=== PATIENT | female | born 1960 | race Caucasian/White ===

== ENCOUNTER 2018-03-17 18:58 | Emergency (ER) | payer OTHER ==
[~2018-03-17] VITALS: Ht 165.1 cm; Wt 59.9 kg
[2018-03-17 19:11] VITALS: BP_SYST 133
--- NOTE | 2018-03-17 19:19 | NUR ---
Patient to ER bed 04 to gown for evaluation. Side rails up.
--- NOTE | 2018-03-17 19:20 | NUR ---
Pt is alert and awake. Pt C/O right sided breast pain that radiates to back since Friday, pain stated 08/19. Denies any N/V/D. Skin warm and intact. No signs of SOB or acute distress noted. Will continue to monitor.
--- NOTE | 2018-03-17 19:44 | NUR ---
ER at bedside examining patient.
[2018-03-17] MEDS ORDERED: NACL 0.9% 1,000 ML IV ONE (19:52)
[2018-03-17] MEDS ORDERED: KETOROLAC TROMETHAMINE 30 MG VIAL IVP ONE (20:00)
[2018-03-17 20:27] LABS: BASOPHILS % (AUTO) 0.6 % (0.0-2.0); EOSINOPHILS # (AUTO) 0.3 K/uL (0.0-0.4); EOSINOPHILS % (AUTO) 4.1 % (0.0-4.0); HEMATOCRIT 40.4 % (36-48); HEMOGLOBIN 13.4 g/dL (12.0-16.0); LYMPHOCYTES # (AUTO) 2.6 K/uL (1.0-5.5); LYMPHOCYTES % (AUTO) 39.3 % (20.5-51.5); MEAN CORPUSCULAR HEMOGLOBIN 30 pg (27-31); MEAN CORPUSCULAR HGB CONC 33 % (32-36); MEAN CORPUSCULAR VOLUME 90 fL (79.0-98.0); MONOCYTES # (AUTO) 0.4 K/uL (0.0-1.0); MONOCYTES % (AUTO) 5.9 % (1.7-9.3); NEUTROPHILS # (AUTO) 3.2 K/uL (1.8-7.7); NEUTROPHILS % (AUTO) 50.1 % (40.0-70.0); PLATELET COUNT (AUTO) 305 K/uL (130-430); RED CELL DISTRIBUTION WIDTH 12.3 % (9.0-15.0); WHITE BLOOD COUNT (AUTO) 6.5 K/uL (4.8-10.8)
[2018-03-17 20:36] LABS: CALCIUM 8.8 mg/dL (8.4-11.0); CREATININE 0.96 mg/dL (0.55-1.30); POTASSIUM 4.3 mmol/L (3.5-5.1)
[2018-03-17 20:40] LABS: ALBUMIN 3.8 g/dL (3.4-4.8); TOTAL BILIRUBIN 0.3 mg/dL (0.0-1.0)
--- NOTE | 2018-03-17 21:00 | NUR ---
Pt resting in bed, family at bedside. VSS. Will continue to monitor.
[2018-03-17 22:30] VITALS: BP_SYST 130
--- NOTE | 2018-03-17 22:30 | NUR ---
Patient given written and verbal discharge instructions and verbalizes understanding. ER MD Eckert discussed with patient the results and treatment provided. Patient in stable condition. ID arm band removed. IV catheter removed intact and dressing applied, no active bleeding. Rx of Robaxin and Motrin given. Patient educated on pain management and to follow up with PMD. Pain Scale 2/10. Opportunity for questions provided and answered. Medication side effect fact sheet provided.
== END 2018-03-17 22:30 | disposition home or self-care (01) ==
LOC: SED 18:58
DX: R07.81 Pleurodynia (principal); K21.9 Gastro-esophageal reflux disease without esophagitis
CPT/HCPCS: 36415; 71100; 76700; 80053; 83690; 85025; 96374; 99284; J1885; J7030

== ENCOUNTER → 2018-03-17 | Outpatient (CLI) | payer OTHER | END | disposition home or self-care (01) | LOC: SRD 07:00 | PROVIDERS: ATTEND Obstetrics & Gynecology | DX: J06.9 Acute upper respiratory infection, unspecified (principal) | CPT/HCPCS: 71046-TC ==

== ENCOUNTER 2020-05-23 06:57 | Emergency (ER) | payer BC, OTHER ==
[~2020-05-23] VITALS: Ht 165.1 cm; Wt 63.5 kg
[2020-05-23 07:03] VITALS: BP_SYST 150
[2020-05-23] MEDS ORDERED: NACL 0.9% 1,000 ML IV ONE (07:30)
[2020-05-23 07:40] LABS: BASOPHILS % (AUTO) 0.2 % (0.0-2.0); EOSINOPHILS % (AUTO) 0.1 % (0.0-4.0); HEMOGLOBIN 14.1 g/dL (12.0-16.0); LYMPHOCYTES # (AUTO) 0.7 K/uL (1.0-5.5); LYMPHOCYTES % (AUTO) 11.2 % (20.5-51.5); MEAN CORPUSCULAR HEMOGLOBIN 32 pg (27-31); MEAN CORPUSCULAR HGB CONC 34 % (32-36); MEAN CORPUSCULAR VOLUME 92 fL (79.0-98.0); MONOCYTES # (AUTO) 0.3 K/uL (0.0-1.0); MONOCYTES % (AUTO) 4.5 % (1.7-9.3); NEUTROPHILS # (AUTO) 5.5 K/uL (1.8-7.7); PLATELET COUNT (AUTO) 223 K/uL (130-430); RED BLOOD CELL COUNT(AUTO) 4.47 MIL/uL (4.2-6.2); RED CELL DISTRIBUTION WIDTH 13.5 % (9.0-15.0); WHITE BLOOD COUNT (AUTO) 6.6 K/uL (4.8-10.8)
[2020-05-23 07:45] LABS: CALCIUM 8.6 mg/dL (8.4-11.0); CREATININE 1.24 mg/dL (0.55-1.30); POTASSIUM 3.9 mmol/L (3.5-5.1)
[2020-05-23] MEDS ORDERED: DIPHENOXYLATE HCL/ATROP SULF 2.5 MG TAB PO ONE (07:45)
[2020-05-23] MEDS ORDERED: KETOROLAC TROMETHAMINE 30 MG VIAL IVP ONE (07:45)
[2020-05-23 07:57] LABS: ALBUMIN 3.7 g/dL (3.4-4.8); TOTAL BILIRUBIN 0.5 mg/dL (0.0-1.0)
[2020-05-23] MEDS ORDERED: LEVO750T45 PO (08:05)
[2020-05-23] MEDS ORDERED: LOM2.5 PO (08:05)
[2020-05-23 08:37] VITALS: BP_SYST 148
== END 2020-05-23 08:37 | disposition home or self-care (01) ==
LOC: SED 06:57
DX: K52.9 Noninfective gastroenteritis and colitis, unspecified (principal); K21.9 Gastro-esophageal reflux disease without esophagitis
CPT/HCPCS: 36415; 80053; 85025; 96374; 96361; 99283; J1885; J7030